=== PATIENT | male | born 1960 | race Caucasian/White ===

== ENCOUNTER → 2018-09-05 07:32 | Emergency (ER) | payer BC ==
--- NOTE | 2018-09-05 12:47 | UC ---
Throat Pain/Nasal Robbi HPI - HPI Summary HPI Summary: Patient presents to urgent care with 7 days progressive facial pressure, sinus pressure, and postnasal drip. Patient states he feels his teeth particularly on the right side starting a. Patient with a history of sinus infections states this feels similar. Patient denies fevers or chills. No nausea vomiting. Patient has taken a couple doses of Motrin with improvement. No vision changes. No trauma. No confusion. Patient hasn't taken any decongestants. Patient denies sick contacts at home. Patient's not immunocompromised. Medications reviewed this visit. - History of Current Complaint Chief Complaint: UCGeneralIllness Stated Complaint: HEADACHE, SINUS PAIN Time Seen by Provider: 09/05/18 07:51 Hx Obtained From: Patient Onset/Duration: Gradual Onset Severity: Moderate Pain Intensity: 5 Pain Scale Used: 0-10 Numeric - Allergies/Home Medications Allergies/Adverse Reactions: Allergies Allergy/AdvReac Type Severity Reaction Status Date / Time amoxicillin Allergy Rash Verified 09/05/18 07:49 ibuprofen AdvReac Intermediate GI Upset Uncoded 09/05/18 07:49 Home Medications: Home Medications Acetaminophen [Tylenol Extra Strength] 1,000 mg PO DAILY PRN 09/05/18 [History Confirmed 09/05/18] PMH/Surg Hx/FS Hx/Imm Hx Previously Healthy: Yes - Surgical History Surgical History: Yes Surgery Procedure, Year, and Place: 2009-neck surgery- c-5/c6-with titanium plate; hernia repair x2. right knee - Family History Known Family History: Positive: Non-Contributory - Social History Occupation: Employed Full-time - auto service mechanic Lives: With Family Alcohol Use: Rare Substance Use Type: None Smoking Status (MU): Never Smoked Tobacco - Immunization History Most Recent Tetanus Shot: believes it was 5 yrs ago Review of Systems All Other Systems Reviewed And Are Negative: Yes Constitutional: Positive: Negative ENT: Positive: Nasal Discharge, Sinus Congestion Neurological: Positive: Headache Physical Exam - Summary Physical Exam Summary: Vital Signs Reviewed: Yes A+Ox3, no distress Eyes: Conjunctiva Clear, CRYSTAL. EOM intact and full ENT: Hearing grossly normal TM x 2 clear, turbinates inflammed, + PND, mmoist , uvula midline, no exudate, no erythema Neck: Positive: Supple Respiratory: Positive: No respiratory distress, No accessory muscle use + CTA throughout no w/r Cardiovascular: RRR nl s1, s2 no m/r CBT <2 sec abd soft + BS nt/nd no guarding, no distension Musculoskeletal Exam: THIBODEAUX x 4 without difficulty Strength Intact, ROM Intact Neurological: Positive: Alert, + sensation throughout Psychological: Positive: Normal Response To Family Skin: Positive: no rash, no ecchymosis Triage Information Reviewed: Yes Vital Signs: Initial Vital Signs Temp 97.9 F 09/05/18 07:43 Pulse 64 09/05/18 07:43 Resp 18 09/05/18 07:43 BP 124/62 09/05/18 07:43 Pulse Ox 97 09/05/18 07:43 Throat Pain/Nasal Course/Dx - Course Course Of Treatment: Patient presents to urgent care with progressive sinus infection, pressure, and now postnasal drip. On exam vital signs are stable. Patient with body terminates in postnasal drip. Patient otherwise well- appearing. We'll start patient on Zithromax is an allergy to amoxicillin and Zithromax in the past. Will do Flonase. Encourage Motrin/Tylenol. Humidified air. Hydrate. Secretion precaution. Strict return precautions. Patient comfortable in agreement with plan - Differential Dx/Diagnosis Provider Diagnosis: Rhinosinusitis Discharge - Sign-Out/Discharge Documenting (check all that apply): Patient Departure All imaging exams completed and their final reports reviewed: No Studies - Discharge Plan Condition: Stable Disposition: HOME Prescriptions: Azithromycin TAB* [Zithromax TAB (Z-RAMONA) 250 mg #6 tabs] 2 tab PO .TODAY, THEN 1 DAILY #1 ramona Fluticasone NASAL SPRAY 50MCG* [Flonase NASAL SPRAY 50MCG*] 2 spray BOTH NARES DAILY #1 btl Patient Education Materials: Rhinosinusitis (ED) Referrals: Sacha Sow MD [Primary Care Provider] - Additional Instructions: - Stay well hydrated. Drink plenty of non-alcoholic, non-caffinated beverages. - Alternate ibuprofen (Advil, Motrin) 600mg and Tylenol every 3 hours for pain or fever. Take with food. Do NOT take for more than 4-5 days. - These infections are spread by secretions - do NOT share eating or drinking utensils - clean items you share with other people such as cell phones, computer mouse, TV remote, computer tablets,etc. Once you have been antibiotics for 2 days, change your toothbrush and your pillowcase. - get plenty of restful sleep - humidify the air in the room where you sleep - boil water, run a hot steam shower, vaporizer, cups of water by heat register - okay to take over the counter decongestant and cough medication - use nasal spray as prescribed - contact your doctor or return with questions or concerns - Billing Disposition and Condition Condition: STABLE Disposition: Home
[2018-09-05 12:53] VITALS: BP 124/62
== END | disposition home or self-care (01) ==
LOC: UCEAST 07:32
DX: J32.9 Chronic sinusitis, unspecified (principal); Z88.0 Allergy status to penicillin; Z88.6 Allergy status to analgesic agent
CPT/HCPCS: 99211; G0463

== ENCOUNTER 2019-06-16 17:00 | Emergency (ER) | payer BC ==
[2019-06-16 17:24] VITALS: BP 122/78
--- NOTE | 2019-06-16 18:19 | UC ---
Headache HPI - HPI Summary HPI Summary: 58-year-old male comes in with a chief complaint of headaches and sinus congestion. Headaches can be frontal or occipital. Patient has a plate in his neck and he has chronic neck pain and chronic intermittent headaches. 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 These are different in that they're more persistent and he has nasal congestion which he relates to having a sinus infection. No complaint of any sore throat or fevers or weakness or numbness difficulty with speech or vision. - History Of Current Complaint Chief Complaint: UCHeadache Stated Complaint: HEADACHE, CONGESTION Time Seen by Provider: 06/16/19 18:07 Pain Intensity: 7 - Allergies/Home Medications Allergies/Adverse Reactions: Allergies Allergy/AdvReac Type Severity Reaction Status Date / Time amoxicillin Allergy Rash Verified 06/16/19 17:15 ibuprofen AdvReac Intermediate GI Upset Uncoded 06/16/19 17:15 PMH/Surg Hx/FS Hx/Imm Hx Previously Healthy: Yes - Surgical History Surgical History: Yes Surgery Procedure, Year, and Place: 2009-neck surgery- c-5/c6-with titanium plate;. hernia repair x2. right knee - Family History Known Family History: Positive: Non-Contributory - Social History Alcohol Use: Rare Substance Use Type: None Smoking Status (MU): Never Smoked Tobacco - Immunization History Most Recent Tetanus Shot: believes it was 5 yrs ago Review of Systems All Other Systems Reviewed And Are Negative: Yes Constitutional: Positive: Other - SEE HPI Skin: Positive: Negative Eyes: Positive: Negative ENT: Positive: Nasal Discharge, Sinus Congestion Respiratory: Positive: Negative Cardiovascular: Positive: Negative Gastrointestinal: Positive: Negative Motor: Positive: Negative Neurovascular: Positive: Negative Musculoskeletal: Positive: Negative Neurological: Positive: Headache Psychological: Positive: Negative Is Patient Immunocompromised?: No Physical Exam Triage Information Reviewed: Yes Appearance: Well-Appearing, No Pain Distress, Well-Nourished Vital Signs: Initial Vital Signs Temp 97.8 F 06/16/19 17:16 Pulse 78 06/16/19 17:16 Resp 16 06/16/19 17:16 BP 122/78 06/16/19 17:16 Pulse Ox 98 06/16/19 17:16 Vital Signs Reviewed: Yes Eye Exam: Normal Eyes: Positive: Conjunctiva Clear ENT: Positive: Pharynx normal, TMs normal Neck: Positive: Supple Respiratory: Positive: Lungs clear, Normal breath sounds, No respiratory distress Cardiovascular: Positive: RRR Musculoskeletal: Positive: Strength Intact, ROM Intact Neurological: Positive: Alert, Muscle Tone Normal Psychological: Positive: Age Appropriate Behavior Skin Exam: Normal Headache Course/Dx - Course Course Of Treatment: Patient does have chronic neck pain and intermittent headaches reports that these headaches she's been having recently are consistent with sinusitis and relates that antibiotics usually help the symptoms. He is allergic to amoxicillin and therefore we will treat with doxycycline. I did let him know that if he did not improve her got worse he needs to get reevaluated again right away. - Differential Dx/Diagnosis Provider Diagnosis: Sinusitis, Headache Discharge ED - Sign-Out/Discharge Documenting (check all that apply): Patient Departure All imaging exams completed and their final reports reviewed: No Studies - Discharge Plan Condition: Stable Disposition: HOME Prescriptions: DOXYcycline CAP(*) [DOXYcycline 100MG CAP(*)] 100 mg PO BID #20 cap Patient Education Materials: Sinusitis (ED), Acute Headache (ED) Referrals: Sacha Sow MD [Primary Care Provider] - Additional Instructions: FOLLOW UP WITH YOUR DOCTOR IF NOT COMPLETELY IMPROVED. GET RECHECKED SOONER IF YOUR CONDITION DOES NOT IMPROVE OR WORSENS OR ANY QUESTIONS OR CONCERNS. - Billing Disposition and Condition Condition: STABLE Disposition: Home
== END 2019-06-16 18:22 | disposition home or self-care (01) ==
LOC: UCEAST 17:00
DX: J32.9 Chronic sinusitis, unspecified (principal); R51 Headache; Z88.0 Allergy status to penicillin; Z88.8 Allergy status to other drugs, medicaments and biological substances
CPT/HCPCS: 99212; G0463

== ENCOUNTER 2019-10-30 20:33 | Emergency (ER) | payer BC ==
[2019-10-30] MEDS ORDERED: Tetracaine 0.5% OPTH.SOL 4 ML* 1 DROP BTL ONE (20:48)
--- NOTE | 2019-10-30 21:00 | ED ---
Throat Pain/Nasal Congestion - HPI Summary HPI Summary: 59-year-old male presents to the emergency department today complaining of left eye pain for 2 days. Patient states he was grinding metal in his home when he removed his goggles and a piece of metal got into his left eye. Patient states he irrigated his eye and he used a magnet to try to remove the foreign body however he believes it is embedded in his eye. Patient endorses some 6/10 in the left eye but denies changes in vision. - History of Current Complaint Chief Complaint: EDEyeProblem Time Seen by Provider: 10/30/19 20:48 Hx Obtained From: Patient Onset/Duration: Sudden Onset, Lasting Days Severity: Severe Associated Signs And Symptoms: Positive: FB Sensation - Allergies/Home Medications Allergies/Adverse Reactions: Allergies Allergy/AdvReac Type Severity Reaction Status Date / Time amoxicillin Allergy Mild Rash Verified 10/30/19 20:36 ibuprofen AdvReac Intermediate GI Upset Uncoded 10/30/19 20:36 Home Medications: Home Medications Acetaminophen [Tylenol Extra Strength] 1,000 mg PO BID 09/14/19 [History Confirmed 10/15/19] traMADol TAB* [Ultram*] 50 mg PO BID PRN 09/14/19 [History Confirmed 10/15/19] PMH/Surg Hx/FS Hx/Imm Hx Endocrine/Hematology History: Denies: Hx Diabetes Cardiovascular History: Denies: Hx Hypertension, Hx Pacemaker/ICD History: Denies: Hx Dialysis, Hx Renal Disease Musculoskeletal History: Reports: Hx Arthritis Denies: Hx Rheumatoid Arthritis, Hx Osteoporosis, Hx Scoliosis Sensory History: Reports: Hx Cataracts - BILATERAL, Hx Contacts or Glasses - GLASSES Denies: Hx Hearing Aid Opthamlomology History: Reports: Hx Cataracts - BILATERAL, Hx Contacts or Glasses - GLASSES Neurological History: Reports: Hx Headaches, Other Neuro Impairments/Disorders - PAIN CLINIC PT. Psychiatric History: Denies: Hx Panic Disorder - Surgical History Surgery Procedure, Year, and Place: 2008-neck surgery- c-5/c6-with titanium plate - AT [facility] [place] [facility] - CONDITIONAL MR 1.5 OR 3T MAX SPATIAL FIELD GRADIENT 3000 GAUSS/CM * NORMAL MODE* */OP REPORT SCANNED INTO EMR. hernia repair x2. TORN CARTILIDGE AND TENDON - right knee. 2016 ROSITA CATARACT Hx Anesthesia Reactions: No - Immunization History Date of Tetanus Vaccine: 2017 Date of Influenza Vaccine: never Infectious Disease History: No Infectious Disease History: Denies: History Other Infectious Disease, Traveled Outside the [place] in Last 30 Days - Family History Known Family History: Positive: Non-Contributory - Social History Alcohol Use: Occasionally Alcohol Amount: 1 DRINK Substance Use Type: Reports: None Smoking Status (MU): Never Smoked Tobacco Review of Systems Constitutional: Negative Positive: Erythema. Negative: Photophobia, Blurred Vision, Diplopia, Drainage ENT: Negative Cardiovascular: Negative Respiratory: Negative Gastrointestinal: Negative Genitourinary: Negative Musculoskeletal: Negative Skin: Negative Neurological/Mental Status: Negative Psychological: Normal All Other Systems Reviewed And Are Negative: Yes Physical Exam - Summary Physical Exam Summary: Patient is in no acute distress. There is minor erythema the left eye. There is a noted foreign body with rust ring to the 2 o'clock position of the patient' s left cornea. Patient has no disruption in visual acuity or visual bro. Triage Information Reviewed: Yes Vital Signs On Initial Exam: Initial Vitals Temp Pulse Resp BP Pulse Ox 97.9 F 81 15 128/82 100 10/30/19 20:35 10/30/19 20:35 10/30/19 20:35 10/30/19 20:35 10/30/19 20:35 Vital Signs Reviewed: Yes Appearance: Positive: Well-Appearing, No Pain Distress, Well-Nourished Skin: Positive: Warm, Skin Color Reflects Adequate Perfusion Eyes: Positive: EOMI, CRYSTAL ENT: Positive: Hearing grossly normal Respiratory/Lung Sounds: Positive: Clear to Auscultation, Breath Sounds Present Cardiovascular: Positive: RRR, S1, S2 Abdomen Description: Positive: Nontender, Soft Bowel Sounds: Positive: Present Musculoskeletal: Positive: Strength/ROM Intact Neurological: Positive: Sensory/Motor Intact, Alert, Oriented to Person Place, Time, Facial Symmetry, Speech Normal Psychiatric: Positive: Normal, Affect/Mood Appropriate AVPU Assessment: Alert Procedures - Sedation Patient Received Moderate/Deep Sedation with Procedure: No Diagnostics - Vital Signs Vital Signs Temp Pulse Resp BP Pulse Ox 10/30/19 20:35 97.9 F 81 15 128/82 100 - Laboratory Lab Statement: Any lab studies that have been ordered have been reviewed, and results considered in the medical decision making process. EENT Course/Dx - Course Course Of Treatment: Patient was evaluated in the emergency department today for foreign body in left eye. Vitals noted and stable. There appeared to be no secondary infection. Slit lamp was used for removal of metal shard from patient's left eye. Patient given antibiotic eyedrops and discharge with outpatient follow-up to ophthalmology. - Differential Diagnoses Differential Diagnoses: Corneal Abrasion, Foreign Body - Diagnoses Provider Diagnoses: Foreign body in eye Discharge ED - Sign-Out/Discharge Documenting (check all that apply): Patient Departure - Discharge Plan Condition: Stable Disposition: HOME Patient Education Materials: Eye Foreign Body (ED) Referrals: Sacha Sow MD [Primary Care Provider] - Harvey George MD [Medical Doctor] - 3 Days Additional Instructions: Please follow-up with ophthalmology in 3 days. Please use Bleph-10 antibiotic drops every 4 hours until seen by ophthalmology. Please return to this emergency Department immediately if you develop any new or worsening symptoms. - Billing Disposition and Condition Condition: STABLE Disposition: Home
[2019-10-30] MEDS ORDERED: Sulfacetamide 10 % OPTH.SOL LEFT EYE ONE (21:45)
[2019-10-30 21:58] VITALS: BP 122/74
== END 2019-10-30 21:57 | disposition home or self-care (01) ==
LOC: ED 20:33
DX: T15.02XA Foreign body in cornea, left eye, initial encounter (principal); X58.XXXA Exposure to other specified factors, initial encounter; Y93.89 Activity, other specified; Y92.009 Unspecified place in unspecified non-institutional (private) residence as the place of occurrence of the external cause; Z88.6 Allergy status to analgesic agent; Z88.0 Allergy status to penicillin
CPT/HCPCS: 65222; 99282; A9270-GY